=== PATIENT | female | born 1985 | race Caucasian/White ===

== ENCOUNTER 2021-10-16 09:37 | Emergency (ER) | payer OTHER, SELFPAY ==
[2021-10-16 09:50] VITALS: BP 110/47; PULSE 90; RESP 16; TEMP 38.1; O2SAT 100
--- NOTE | 2021-10-16 10:06 | ED.URI ---
HPI - URI/Sore Throat General Chief Complaint: Upper Respiratory Infection Stated Complaint: cough Time Seen by Provider: 10/16/21 10:06 Source: patient History of Present Illness HPI Narrative: Patient presents with 1 day of symptoms of cough runny nose and nasal congestion. Patient states her tested positive for COVID-19 7 days ago. Patient states that she and her son had a negative PCR 3 days ago. Patient states she is fully vaccinated and had her booster for COVID-19. Patient denies any shortness of breath and no chest pain but states he is a normally healthy individual. Patient is taking Mucinex for her symptoms with minimal relief in her cough and congestion. MD elicited complaint: cough Related Data Home Medications Medication Instructions Recorded Confirmed levonorgestrel [Mirena] 1 insert INTRAUTERINE ONCE 10/16/21 10/16/21 methenamine hippurate [Hiprex] 1 g PO BID 10/16/21 10/16/21 Allergies Allergy/AdvReac Type Severity Reaction Status Date / Time ciprofloxacin Allergy Intermediate Rash Verified 10/16/21 09:52 valacyclovir Allergy Intermediate Rash Verified 10/16/21 09:52 Review of Systems Review of Systems: CONSTITUTIONAL: Denies chills, or sweats. Reports fever and generalized body aches EYES: Denies visual changes, redness, or discharge. ENT: Denies otalgia. Reports nasal congestion runny nose and sore throat CARDIOVASCULAR: Denies chest pain, palpitations, or edema. RESPIRATORY: Denies dyspnea. Reports occasional cough GASTROINTESTINAL: Denies abdominal pain, nausea, vomiting, or diarrhea. GENITOURINARY: Denies dysuria or hematuria. SKIN: Denies rash or itching. MUSCULOSKELETAL: Denies back pain, joint pain, or myalgia. Reports generalized body aches NEUROLOGIC: Denies headache, numbness, or weakness. PSYCHIATRIC: Denies anxiety or depression. [facility] Comments At time of signature, agree with nursing past medical, surgical, social and family history. There is no relevant family history pertinent to the presenting complaint Exam Narrative: CONSTITUTIONAL: Denies chills, or sweats. Reports fever and generalized body aches EYES: Denies visual changes, redness, or discharge. ENT: Denies otalgia. Reports nasal congestion runny nose and sore throat CARDIOVASCULAR: Denies chest pain, palpitations, or edema. RESPIRATORY: Denies dyspnea. Reports occasional cough GASTROINTESTINAL: Denies abdominal pain, nausea, vomiting, or diarrhea. GENITOURINARY: Denies dysuria or hematuria. SKIN: Denies rash or itching. MUSCULOSKELETAL: Denies back pain, joint pain, or myalgia. Reports generalized body aches NEUROLOGIC: Denies headache, numbness, or weakness. PSYCHIATRIC: Denies anxiety or depression. Course Course Level of Care: Express Care Visit Vital Signs Vital signs: Vital Signs Temperature 38.1 C H 10/16/21 09:50 Pulse Rate 90 10/16/21 09:50 Respiratory Rate 16 10/16/21 09:50 Blood Pressure 110/47 L 10/16/21 09:50 Pulse Oximetry 100 10/16/21 09:50 Temperature 38.1 C H 10/16/21 09:50 Pulse Rate 90 10/16/21 09:50 Respiratory Rate 16 10/16/21 09:50 Blood Pressure 110/47 L 10/16/21 09:50 Pulse Oximetry 100 10/16/21 09:50 Critical dx considered and discussed with pt. Educated patient on red flag s/s and to go to ED if s/s occur. Discussed with pt when to return to [facility] or primary care provider. Pt gave verbal undertstanding, all questions were answered, and pt was agreeable to plan MDM - URI/Sore Throat Differential Diagnosis Differential diagnosis: Likely upper respiratory infection, croup, otitis media, sinusitis, viral infection, bronchitis, influenza, pharyngitis and other Critical Care Time Critical Care Time Critical Care Time: No Discharge Plan Discharge Clinical Impression: Upper respiratory infection, COVID-19 Patient Disposition: Home, Self-Care Condition: Stable Instructions: Antibiotic Form, COVID-19 (Coronavirus Disease 2019) (
[2021-10-17 16:23] LABS: SARS-CoV-2 RNA PCR Negative
== END 2021-10-16 10:15 | disposition home or self-care (01) ==
PROVIDERS: Emergency Provider Nurse Practitioner Family
DX: U07.1 COVID-19 (principal)
CPT/HCPCS: 87426; 99203; C9803; G0463; U0003; U0005